=== PATIENT | male | born 1980 | race Caucasian/White ===

== ENCOUNTER 2016-08-07 15:58 | Emergency (ER) | payer OTHER, MEDICARE ==
[~2016-08-07] VITALS: Ht 190.5 cm; Wt 79.8 kg
[2016-08-07 17:38] LABS: ABSOLUTE BASOPHIL COUNT 0 /CUMM (0.0-0.2); ABSOLUTE EOSINOPHIL COUNT 0.1 /CUMM (0.0-0.7); ABSOLUTE GRANULOCYTE CT 6.7 /CUMM (1.4-6.5); ABSOLUTE MONOCYTE COUNT 0.5 /CUMM (0.10-0.60); BASOPHIL % 0.4 % (0.0-2.0); EOSINOPHIL % 1.3 % (0-5); GRANULOCYTE % 71.8 % (42.2-75.2); MEAN CORPUSCULAR HGB 28.2 PG (27.0-31.0); MEAN CORPUSCULAR HGB CONC 33.2 G/DL (33.0-37.0); MEAN CORPUSCULAR VOLUME 84.9 FL (80.0-94.0); MEAN PLATELET VOLUME 8.2 FL (7.4-10.4); PLATELET COUNT 235 /CUMM (130-400); WHITE BLOOD CELL COUNT 9.3 /CUMM (4.8-10.8)
--- NOTE | 2016-08-07 18:34 | ED GENERAL ADULT ---
History of Present Illness General Chief Complaint: General Adult Stated Complaint: FEVER; Source: patient Exam Limitations: no limitations Vital Signs & Intake/Output Vital Signs & Intake/Output Vital Signs Date Time Temp Pulse Resp B/P B/P Pulse O2 O2 Flow FiO2 Mean Ox Delivery Rate 08/07 1841 Room Air Room Air 08/07 1830 98.1 85 18 133/66 100 Room Air 08/07 1610 98.2 111 18 165/86 99 Room Air Allergies Coded Allergies: dimenhydrinate (From DRAMAMINE) (Severe, FASE/TONGUE SWELLING 08/07/16) prochlorperazine (From COMPAZINE) (Severe, SWELLING 08/07/16) ketorolac (From TORADOL) (Intermediate, HIVES 08/07/16) morphine (Intermediate, HIVES 08/07/16) prazosin (Intermediate, RASH 08/07/16) rofecoxib (From VIOXX) (BLOOD IN STOOL 08/07/16) Uncoded Allergies: CONTRAST DYE (Severe, SWELLING 08/07/16) SHELFISH (Severe, SWELLING, THROAT CLOSING 08/07/16) ZOFRAN (Severe, FACIAL SWELING, RASH 08/07/16) Triage Note: PT TO TRIAGE WITH C/O FEVER, ABD PAIN, N/V/D FOR 3 MONTHS. PT HAS BEEN ON MULTIPLE ANTIBIOTICS WITH NO SYMPTOMS RELIEF. HX OF CROHN'S, IBS, DIVERTICULITIS, HTN,ARTHRITIS,+MRSA. VSS. Triage Nurses Notes Reviewed? yes Onset: Gradual Duration: waxing and waning, 3 months Timing: recent history Injury Environment: home Severity: mild, moderate No Modifying Factors: none Associated Symptoms: ABDOMINAL PAIN HPI: 36 year old male presents to the ER for chief complaint of subjective fevers for the past 3 months. He states he has been on abx for presumed URI symptoms also for presumed diverticulitis by his PCP. He does not usually come to [place] for his care. His primary care doctor wanted to order a CT scan or his abdomen but since he has an allergic reaction to contrast he wanted him admitted to the hospital for pretreatment prior to contrast. He states that he has a history of crohns disease and also history of partial bowel resection. He states he has never been on treatment for crohns colitis. Last fever was a few days ago. He denies any change in his stools. Denies recent travel or antibiotic use. Past History Travel History Traveled to [place] past 21 day No Medical History Any Pertinent Medical History? see below for history Cardiovascular: hypertension, IBS Gastrointestinal: diverticulitis Musculoskeletal: chronic back pain, TMJ ARTHRITIS Psychiatric: anxiety, depression Endocrine: diabetes Surgical History Surgical History: non-contributory Psychosocial History What is your primary language Kittitian Tobacco Use: Current Daily Use Daily Tobacco Use Amount/Type: =< 4 Cigarettes daily ETOH Use: denies use Illicit Drug Use: denies illicit drug use Family History Comment: BRAIN CA PROSTATE CANCER STOMACH CANCER ENDOMETRIAL CANCER Hx Contributory? No Review of Systems Review of Systems Constitutional: Reports: fever. Denies: malaise, unexplained weight loss. EENTM: Reports: no symptoms. Respiratory: Denies: cough, short of breath, sputum production. Cardiovascular: Denies: chest pain, palpitations. GI: Reports: abdominal pain. Denies: diarrhea, vomiting. Genitourinary: Denies: discharge, dysuria, frequency. Musculoskeletal: Reports: no symptoms. Skin: Reports: no symptoms. Neurological/Psychological: Reports: no symptoms. Hematologic/Endocrine: Denies: bruising, bleeding, polyuria, polydipsia. Immunologic/Allergic: Denies: splenectomy. All Other Systems: Reviewed and Negative Physical Exam Physical Exam General Appearance: alert, awake, mild distress, thin Head: atraumatic, normal appearance Eyes: Bilateral: normal appearance, PERRL, EOMI. Ears, Nose, Throat: normal pharynx, normal ENT inspection Neck: normal inspection, supple, full range of motion Respiratory: normal breath sounds, chest non-tender, no respiratory distress Cardiovascular: regular rate/rhythm Peripheral Pulses: 2+ radial (R), 2+ radial (L) Gastrointestinal: normal bowel sounds Extremities: normal inspection, normal capillary refill, normal range of motion, no edema Neurologic/Psych: no motor/sensory deficits, awake, alert, oriented x 3 Skin: intact, normal color Core Measures ACS in differential dx? No CVA/TIA Diagnosis: No Severe Sepsis Present: No Septic Shock Present: No Progress Differential Diagnoses I considered the following diagnoses in my evaluation of the patient: [colitis, crohns, endocarditis, uti, pyelonephritis, infectious diarrhea]] Plan of Care: Orders Procedure Date/time Status Add-on Test (ER Only) 08/08 1919 Active BLOOD CULTURE 08/07 1917 Active URINE DRUGS OF ABUSE 08/08 1915 Active URINALYSIS 08/08 1915 Active C-REACTIVE PROTEIN 08/07 1720 Complete LIPASE 08/07 164 Complete COMPREHENSIVE METABOLIC PANEL 08/07 1645 Complete CBC WITHOUT DIFFERENTIAL 08/07 1645 Complete AMYLASE 08/07 1645 Complete Laboratory Tests 08/07/164: Methadone Screen Pending, Barbiturate Screen Pending, Ur Phencyclidine Scrn Pending, Amphetamines Screen Pending, U Benzodiazepines Scrn Pending, Urine Cocaine Screen Pending, Urine Cannabis Screen Pending, Urine Color Pending, Urine Clarity Pending, Urine pH Pending, Ur Specific Kingsley Pending, Urine Protein Pending, Urine Ketones Pending, Urine Nitrite Pending, Urine Bilirubin Pending, Urine Urobilinogen Pending, Ur Leukocyte Esterase Pending, Ur Microscopic SEDIMENT EXAMINED, Urine RBC Pending, Urine Hemoglobin Pending, Urine Glucose Pending 08/07/16 1720: Anion Gap 13, Estimated GFR > 60, BUN/Creatinine Ratio 21.7, Glucose 120 H, Calcium 9.3, Total Bilirubin 0.4, AST 28, ALT 57, Alkaline Phosphatase 70, C- Reactive Prot, Quant < 0.5, Total Protein 7.2, Albumin 4.5, Globulin 2.7, Albumin/Globulin Ratio 1.7, Amylase 82, Lipase 19 L, CBC w Diff NO MAN DIFF REQ , RBC 5.30, MCV 84.9, MCH 28.2, RDW 13.0, MPV 8.2, Gran % 71.8, Lymphocytes % 21.2, Monocytes % 5.3, Eosinophils % 1.3, Basophils % 0.4, Absolute Granulocytes 6.7 H, Absolute Lymphocytes 2.0, Absolute Monocytes 0.5, Absolute Eosinophils 0.1, Absolute Basophils 0, PUBS MCHC 33.2 Microbiology 08/07 2006 BLOOD: Blood Culture - RECD 08/07 1949 BLOOD: Blood Culture - RECD CT ABDOMEN/CXR does not reveal any acute pathology. wbc normal. cultures pending. (BRI ALCOCER,PERRY) Diagnostic Imaging: Viewed by Me: Radiology Read, CT Scan. Discussed w/RAD: Radiology Read, CT Scan. Radiology Impression: PATIENT: MARISA ROMANO PRESENT AGE: 36 PATIENT ACCOUNT NO: [id number] : 79 LOCATION: [facility] ORDERING PHYSICIAN: PERRY GREGORY MD SERVICE DATE: 08/07/16 EXAM TYPE: CAT - CT ABD & PELVIS W/O IV CONTRAS EXAMINATION: CT ABDOMEN AND PELVIS WITHOUT CONTRAST CLINICAL INFORMATION: Left lower quadrant pain with fever COMPARISON: None TECHNIQUE: Multidetector volumetric imaging was performed from the superior aspect of the liver through the pubic symphysis. Sagittal and coronal reformatted images were obtained on the technologist's workstation. FINDINGS: Lung bases are grossly clear. Upper abdomen Liver and spleen are grossly normal in morphology. Region the pancreas is unremarkable. The adrenal glands are unremarkable. There is no bulky adenopathy seen here. Likely small accessory spleen as noted in the hilar region. Bowel pattern is nonobstructing. Kidneys felt to BE nonhydronephrotic. In the pelvis no free fluid. There is no obstruction. The bowel pattern is normal. No bulky adenopathy. Some surgical sutures are noted associated with the bowel. IMPRESSION: Noncontrast study. No acute finding here. Bowel pattern is nonobstructing. No suspicious fluid collection. No suspicious soft tissue stranding DICTATED BY: HCARLIE RODRÍGUEZ MD DATE/TIME DICTATED:08/07/162004 STRATEGIC MARKETING MANAGER:VERONICA DATE/TIME TRANSCRIBED:08/07/162004 CONFIDENTIAL, DO NOT COPY WITHOUT APPROPRIATE AUTHORIZATION. <Electronically signed in Other Vendor System> SIGNED BY: CHARLIE RODRÍGUEZ MD 08/07/162017 CXR Impression: PATIENT: MARISA ROMANO PRESENT AGE: 36 PATIENT ACCOUNT NO: [id number] : 79 LOCATION: [facility] ORDERING PHYSICIAN: PERRY GREGORY MD SERVICE DATE: 08/07/16 EXAM TYPE: RAD - XRY -CHEST XRAY, PA AND LATERAL EXAMINATION: XR CHEST CLINICAL INFORMATION: Cough, fever COMPARISON: None TECHNIQUE: 2 views of the chest were obtained. FINDINGS: No infiltrate. Lung peralta are grossly clear. The heart size is normal the hilar structures do not appear enlarged. No effusion. IMPRESSION: No convincing evidence for an acute process DICTATED BY: CHARLEI RODRÍGUEZ MD DATE/TIME DICTATED :08/07/161951 STRATEGIC MARKETING MANAGER:VERONICA DATE/TIME TRANSCRIBED:08/07/161951 CONFIDENTIAL, DO NOT COPY WITHOUT APPROPRIATE AUTHORIZATION. < Electronically signed in Other Vendor System> SIGNED BY: CHARLIE RODRÍGUEZ MD 08/07/161955 Initial ED EKG: none Departure Departure Disposition: HOME OR SELF CARE Condition: Stable Clinical Impression Primary Impression: Abdominal pain Referrals: GRISEL LARA MD (PCP/Family) Additional Instructions: Please follow-up with your primary care doctor in the office. Take a copy of your blood and CAT scan and chest x-ray results to him. Blood cultures are pending in the lab. He will be notified for any positive results. Departure Forms: Customer Survey General Discharge Information Critical Care Note Critical Care Note Critical Care Time: non-applicable
--- NOTE | 2016-08-07 19:56 | RADIOLOGY REPORT ---
EXAMINATION: XR CHEST CLINICAL INFORMATION: Cough, fever COMPARISON: None TECHNIQUE: 2 views of the chest were obtained. FINDINGS: No infiltrate. Lung peralta are grossly clear. The heart size is normal the hilar structures do not appear enlarged. No effusion. IMPRESSION: No convincing evidence for an acute process
--- NOTE | 2016-08-07 20:18 | CT SCAN REPORT ---
EXAMINATION: CT ABDOMEN AND PELVIS WITHOUT CONTRAST CLINICAL INFORMATION: Left lower quadrant pain with fever COMPARISON: None TECHNIQUE: Multidetector volumetric imaging was performed from the superior aspect of the liver through the pubic symphysis. Sagittal and coronal reformatted images were obtained on the technologist's workstation. FINDINGS: Lung bases are grossly clear. Upper abdomen Liver and spleen are grossly normal in morphology. Region the pancreas is unremarkable. The adrenal glands are unremarkable. There is no bulky adenopathy seen here. Likely small accessory spleen as noted in the hilar region. Bowel pattern is nonobstructing. Kidneys felt to BE nonhydronephrotic. In the pelvis no free fluid. There is no obstruction. The bowel pattern is normal. No bulky adenopathy. Some surgical sutures are noted associated with the bowel. IMPRESSION: Noncontrast study. No acute finding here. Bowel pattern is nonobstructing. No suspicious fluid collection. No suspicious soft tissue stranding
[2016-08-07 20:40] VITALS: BP 106/59
== END 2016-08-07 21:03 ==
LOC: ERH 15:58
PROVIDERS: Physician Assistant Medical
DX: R10.9 Unspecified abdominal pain (principal)
CPT/HCPCS: 82520; 74176; 80307; 81001; 87040; 87071; 96360